=== PATIENT | male | born 1935 | race Caucasian/White ===

== ENCOUNTER → 2016-12-10 | Outpatient (CLI) | payer OTHER, MEDICARE | LOC: BHFA 15:30 | PROVIDERS: ATTEND Internal Medicine Interventional Cardiology | DX: M79.605 Pain in left leg (principal); M79.604 Pain in right leg ==

== ENCOUNTER → 2017-01-23 | Outpatient (CLI) | payer OTHER, MEDICARE ==
[~2017-01-23] MED LIST: IOPAMIDOL (ISOVUE-M 300) 15 ML VIAL ONE; LIDOCAINE 1% 300 MG/30 ML SDV ONE
== END ==
LOC: FIMAGING 08:33
PROVIDERS: ATTEND Neurological Surgery
PROC: B02BYZZ Computerized Tomography (CT Scan) of Spinal Cord using Other Contrast (ICD-10-PCS; principal; 2017-01-23)
DX: M54.16 Radiculopathy, lumbar region (principal); M50.322 Other cervical disc degeneration at C5-C6 level; M43.12 Spondylolisthesis, cervical region; M43.16 Spondylolisthesis, lumbar region
CPT/HCPCS: 72126; 72132; 72270; Q9967

== ENCOUNTER → 2017-05-13 | Outpatient (CLI) | payer OTHER, MEDICARE | LOC: FIMAGING 08:36 | PROVIDERS: ATTEND Internal Medicine | DX: R42 Dizziness and giddiness (principal); R41.0 Disorientation, unspecified; I10 Essential (primary) hypertension ==

== ENCOUNTER → 2017-07-08 | Outpatient (CLI) | payer OTHER, MEDICARE ==
[~2017-07-08] MED LIST changes: +IOPAMIDOL (ISOVUE 370) 100 ML BTL IV ONE; -IOPAMIDOL (ISOVUE-M 300) 15 ML VIAL ONE; -LIDOCAINE 1% 300 MG/30 ML SDV ONE
== END ==
LOC: FIMAGING 07:03
PROVIDERS: ATTEND Internal Medicine
DX: I65.01 Occlusion and stenosis of right vertebral artery (principal); R26.89 Other abnormalities of gait and mobility; R47.9 Unspecified speech disturbances
CPT/HCPCS: 70450; 70496; Q9967

== ENCOUNTER → 2018-11-17 | Outpatient (CLI) | payer OTHER, MEDICARE | LOC: FIMAGING 10:43 ==